=== PATIENT | female | born 1950 | race Caucasian/White ===

== ENCOUNTER 2018-12-17 22:58 | Observation (INO) ==
[2018-12-18] MEDS ORDERED: SODIUM CHLORIDE 0.9% 500 ML IV STA (00:50)
[2018-12-18 01:01] LABS: Basophils # 0.1 10*3/uL (0.0-0.2); Basophils % 0.6 % (0.0-0.8); Eosinophils # 0.2 10*3/uL (0.0-0.87); Eosinophils % 2.2 % (0.00-10.9); Hemoglobin 12.2 GM/DL (12.0-16.0); Immature Granulocytes % 0.6 %; Immature Granulocytes Absolute 0.06 #; Lymphocytes # 1.8 10*3/uL (1.4-4.0); Lymphocytes % 16.8 % (21.3-54.2); Mean Corpuscular HGB Conc 31.3 GM/DL (32-36); Mean Corpuscular Volume 81.9 FL (87-102); Monocytes % 6.5 % (1.7-12.7); Neutrophils % 73.3 % (38.7-73.9); Platelet Count 236 T/CUMM (130-400); Red Blood Count 4.76 MC/CUMM (3.8-5.5); Red Cell Distribution Width 14.6 % (9.3-17.3); White Blood Count 10.7 T/CUMM (4-12)
[2018-12-18 01:07] LABS: Alanine Aminotransferase 13 U/L (13-56); Albumin 3.9 G/DL (3.4-5.0); Alkaline Phosphatase 97 U/L (45-117); Aspartate Amino Transferase 10 U/L (0-37); Bilirubin,Total < 0.39 MG/DL (0.2-1.0); Blood Urea Nitrogen 21 MG/DL (7-18); Calcium 9.7 MG/DL (8.5-10.1); Glucose 112 MG/DL (74-106); Osmolality,Calculated 276.8 MOS/KG (273-304); Total Protein 7.8 G/DL (6.4-8.3)
[2018-12-18 01:09] LABS: PT Patient Result 10.4 SECS
[2018-12-18 01:16] LABS: Apearance,Urine CLOUDY (Clear); Bilirubin,Urine Negative (Negative); Blood, Urine Large mg/dL (Negative); Glucose,Urine (UA) 50 mg/dL (Negative); Ketones,Urine 20 mg/dL (Negative); Nitrite,Urine Negative (Negative); Protein,Urine 100 MG/DL; RBC,Urine 98482 /HPF (0-4); Urine Color Red (Yellow); Urine Specific Gravity 1.015 (1.001-1.035); WBC,Urine 30 /HPF (0-6)
[2018-12-18] MEDS ORDERED: ACETAMINOPHEN 325 MG TABLET PO PRN (04:43)
[2018-12-18] MEDS ORDERED: DOCUSATE SODIUM 100 MG CAPSULE PO PRN (04:43)
[2018-12-18] MEDS ORDERED: ONDANSETRON 4 MG/2 ML VIAL IV PRN (04:43)
[2018-12-18] MEDS: AZTREONAM 1,000 MG in SYRINGE 1 EACH IV SCH ×3 (05:37→20:35)
[2018-12-18] MEDS: SODIUM CHLORIDE 0.9% 1,000 ML IV SCH ×2 (05:40→20:34)
[2018-12-18] MEDS ORDERED: ESTRADIOL 1 MG TABLET PO SCH (09:00)
[2018-12-18] MEDS: LOSARTAN 50 MG TABLET PO SCH (10:01)
[2018-12-18] MEDS: CHOLECALCIFEROL 1,000 UNIT TABLET PO SCH (10:01)
[2018-12-18] MEDS: PANTOPRAZOLE 40 MG TABLET PO SCH (10:02)
[2018-12-18] MEDS: MAGNESIUM CHLORIDE 64 MG TABLET PO SCH (10:02)
[2018-12-18] MEDS: PROPAFENONE 150 MG TABLET PO SCH ×3 (10:02→20:35)
[2018-12-18] MEDS: DILTIAZEM CD 240 MG CAPSULE PO SCH (10:02)
[2018-12-18] MEDS: CARVEDILOL 3.125 MG TABLET PO SCH ×2 (10:03→16:42)
[2018-12-18] MEDS ORDERED: PRAVASTATIN 40 MG TABLET PO SCH (21:00)
[2018-12-19] MEDS: AZTREONAM 1,000 MG in SYRINGE 1 EACH IV SCH ×2 (04:04→13:14)
[2018-12-19 06:02] LABS: Basophils % 0.4 % (0.0-0.8); Eosinophils # 0.1 10*3/uL (0.0-0.87); Eosinophils % 1.2 % (0.00-10.9); Hemoglobin 11.1 GM/DL (12.0-16.0); Immature Granulocytes % 0.4 %; Immature Granulocytes Absolute 0.03 #; Lymphocytes # 1.4 10*3/uL (1.4-4.0); Lymphocytes % 17.1 % (21.3-54.2); Mean Corpuscular HGB Conc 31.7 GM/DL (32-36); Mean Corpuscular Volume 81.6 FL (87-102); Mean Platelet Volume 13.2 FL (9.6-12.0); Monocytes % 7.9 % (1.7-12.7); Platelet Count 200 T/CUMM (130-400); Red Blood Count 4.29 MC/CUMM (3.8-5.5); Red Cell Distribution Width 14.9 % (9.3-17.3); White Blood Count 8.1 T/CUMM (4-12)
[2018-12-19 06:32] LABS: Osmolality,Calculated 277.5 MOS/KG (273-304)
[2018-12-19] MEDS: SODIUM CHLORIDE 0.9% 1,000 ML IV SCH ×3 (06:33→17:47)
[2018-12-19] MEDS: PANTOPRAZOLE 40 MG TABLET PO SCH (08:22)
[2018-12-19] MEDS: MAGNESIUM CHLORIDE 64 MG TABLET PO SCH (08:22)
[2018-12-19] MEDS: DILTIAZEM CD 240 MG CAPSULE PO SCH (08:23)
[2018-12-19] MEDS: CHOLECALCIFEROL 1,000 UNIT TABLET PO SCH (08:23)
[2018-12-19] MEDS: PROPAFENONE 150 MG TABLET PO SCH ×2 (08:24→13:14)
[2018-12-19] MEDS: LOSARTAN 50 MG TABLET PO SCH (08:24)
[2018-12-19] MEDS: CARVEDILOL 3.125 MG TABLET PO SCH ×2 (08:25→17:05)
[2018-12-19 16:09] VITALS: BP 135/62
== END 2018-12-19 17:42 | disposition home or self-care (01) ==
LOC: N.EDINP 22:58 → N.ED 22:58 → N.TELES 12-18 02:20
PROVIDERS: ADMIT Internal Medicine; ATTEND Internal Medicine

== ENCOUNTER 2019-11-20 04:18 | Observation (INO) ==
[2019-11-20 04:55] LABS: Basophils # 0.1 10*3/uL (0.0-0.2); Basophils % 0.5 % (0.0-0.8); Eosinophils # 0.1 10*3/uL (0.0-0.87); Eosinophils % 0.9 % (0.00-10.9); Hematocrit 39.3 VOL% (35.7-47.0); Hemoglobin 12.9 GM/DL (12.0-16.0); Immature Granulocytes % 0.4 %; Immature Granulocytes Absolute 0.05 #; Lymphocytes # 1.2 10*3/uL (1.4-4.0); Lymphocytes % 9.8 % (21.3-54.2); Mean Corpuscular HGB Conc 32.8 GM/DL (32-36); Mean Corpuscular Volume 78.6 FL (87-102); Monocytes % 7.7 % (1.7-12.7); Neutrophils % 80.7 % (38.7-73.9); Platelet Count 314 T/CUMM (130-400); Red Cell Distribution Width 14.6 % (9.3-17.3); White Blood Count 11.7 T/CUMM (4-12)
[2019-11-20 05:17] LABS: Apearance,Urine CLOUDY (Clear); Bilirubin,Urine Negative (Negative); Blood, Urine Large mg/dL (Negative); Glucose,Urine (UA) Negative (Negative); Ketones,Urine Negative (Negative); Nitrite,Urine Negative (Negative); Protein,Urine 100 MG/DL; RBC,Urine 25321 /HPF (0-4); Urine Color Red (Yellow); Urine Specific Gravity 1.017 (1.001-1.035); Urine Urobilinogen < 2.0 EU/DL (0.2-1.0); WBC,Urine 276 /HPF (0-6)
[2019-11-20 05:19] LABS: Calcium 9.4 MG/DL (8.5-10.1); Osmolality,Calculated 261.8 MOS/KG (273-304)
[2019-11-20 05:22] LABS: PT Patient Result 10.9 SECS (9.8-11.9)
[2019-11-20] MEDS ORDERED: cefTRIAXone 1,000 MG in SODIUM CHLORIDE 0.9% 100 ML IV STA (05:30)
[2019-11-20] MEDS ORDERED: cefTRIAXone 1,000 MG VIAL ONE (05:31)
[2019-11-20] MEDS ORDERED: SODIUM CHLORIDE 0.9% 100 ML IV ONE (05:35)
[2019-11-20] MEDS ORDERED: DOCUSATE SODIUM 100 MG CAPSULE PO PRN (06:05)
[2019-11-20] MEDS ORDERED: ONDANSETRON 4 MG/2 ML VIAL IV PRN (06:05)
[2019-11-20] MEDS ORDERED: ACETAMINOPHEN 325 MG TABLET PO PRN (06:05)
[2019-11-20] MEDS: SODIUM CHLORIDE 0.9% 1,000 ML IV SCH ×2 (08:34→15:46)
[2019-11-20] MEDS: PROPAFENONE 150 MG TABLET PO SCH ×2 (13:18→21:06)
[2019-11-20] MEDS: METHENAMINE HIPPURATE 1 GM TABLET PO SCH (17:02)
[2019-11-20] MEDS: carvediloL 3.125 MG TABLET PO SCH (21:06)
[2019-11-21] MEDS: SODIUM CHLORIDE 0.9% 1,000 ML IV SCH (02:30)
[2019-11-21] MEDS ORDERED: cefTRIAXone 1,000 MG in SODIUM CHLORIDE 0.9% 100 ML IV SCH (05:00)
[2019-11-21 05:57] LABS: Basophils % 0.5 % (0.0-0.8); Eosinophils # 0.1 10*3/uL (0.0-0.87); Hematocrit 33.2 VOL% (35.7-47.0); Hemoglobin 10.7 GM/DL (12.0-16.0); Immature Granulocytes % 0.4 %; Immature Granulocytes Absolute 0.03 #; Lymphocytes # 1.2 10*3/uL (1.4-4.0); Lymphocytes % 14.8 % (21.3-54.2); Mean Corpuscular HGB Conc 32.2 GM/DL (32-36); Mean Corpuscular Volume 79.8 FL (87-102); Mean Platelet Volume 11.6 FL (9.6-12.0); Neutrophils % 75.3 % (38.7-73.9); Platelet Count 239 T/CUMM (130-400); Red Blood Count 4.16 MC/CUMM (3.8-5.5); White Blood Count 7.9 T/CUMM (4-12)
[2019-11-21 06:22] LABS: Calcium 8.6 MG/DL (8.5-10.1); Osmolality,Calculated 275.7 MOS/KG (273-304)
[2019-11-21 07:26] VITALS: BP 115/57
[2019-11-21] MEDS ORDERED: CALCIUM (CARBONATE) 600 MG TABLET PO SCH (09:00)
[2019-11-21] MEDS ORDERED: ESTRADIOL 1 MG TABLET PO SCH (09:00)
[2019-11-21] MEDS ORDERED: PANTOPRAZOLE 40 MG TABLET PO SCH (09:00)
[2019-11-21] MEDS ORDERED: DILTIAZEM CD 240 MG CAPSULE PO SCH (09:00)
[2019-11-21] MEDS ORDERED: CHOLECALCIFEROL 1,000 UNIT TABLET PO SCH (09:00)
[2019-11-21] MEDS ORDERED: hydroCHLOROthiazide 25 MG TABLET PO SCH (09:00)
[2019-11-21] MEDS ORDERED: LOSARTAN 50 MG TABLET PO SCH (09:00)
[2019-11-21] MEDS: METHENAMINE HIPPURATE 1 GM TABLET PO SCH (09:35)
[2019-11-21] MEDS: carvediloL 3.125 MG TABLET PO SCH (09:35)
[2019-11-21] MEDS: PROPAFENONE 150 MG TABLET PO SCH (09:36)
[2019-11-21] MEDS ORDERED: PRAVASTATIN 40 MG TABLET PO SCH (21:00)
== END 2019-11-21 10:10 | disposition home or self-care (01) ==
LOC: N.EDINP 04:18 → N.ED 04:18 → N.3E 07:15
PROVIDERS: ADMIT Internal Medicine; ATTEND Internal Medicine